=== PATIENT | male | born 1940 | race Asian ===

== ENCOUNTER → 2017-07-18 | Outpatient (CLI) | payer OTHER | END | disposition home or self-care (01) | LOC: RAD 09:23 | DX: J84.10 Pulmonary fibrosis, unspecified (principal); R05 Cough | CPT/HCPCS: 71046 ==

== ENCOUNTER 2018-12-04 08:20 | Outpatient (CLI) | payer OTHER ==
[~2018-12-04] VITALS: Ht 149.9 cm; Wt 55.3 kg
[~2018-12-04 08:20] MED LIST: AMLO5TAB4 PO; ASPI-612 PO; ATOR10TA60 PO; CALC0.25 PO; CALC667C6 PO; INSU100I11 SQ; INSU100V13 SQ; ISOS60TA2 PO; METO-239 PO; NITR0.4T22 SL; SENN8.6T99 PO
[2018-12-04 08:43] LABS: BASO # 0.1 x10^3/uL (0.0-0.2); BASO % 1 % (0-3); EOS # 0.2 x10^3/uL (0.0-0.7); EOS % 5 % (0-3); HEMATOCRIT 33.1 % (39.0-53.0); HEMOGLOBIN 10.6 g/dL (13.0-17.5); LYMPH # 1.3 x10^3/uL (1.0-4.8); LYMPH % 25 % (24-48); MEAN CORPUSCULAR HEMOGLOBIN 32 pg (25-35); MEAN CORPUSCULAR HGB CONC 32 g/dL (31-37); MEAN CORPUSCULAR VOLUME 100 fL (79-100); MONO # 1.7 x10^3/uL (0.0-1.1); MONO % 33 % (0-9); NEUT # 1.9 x10^3/uL (1.8-7.7); NEUT % 36 % (31-73); PLATELET COUNT 92 x10^3/uL (140-400); RED BLOOD COUNT 3.32 x10^6/uL (4.30-5.70); RED CELL DISTRIBUTION WIDTH 25.8 % (11.5-14.5); WHITE BLOOD COUNT 5.2 x10^3/uL (4.0-11.0)
[2018-12-04] MEDS ORDERED: MIDO5TAB PO (08:46)
[2018-12-04] MEDS ORDERED: CARV25TA PO (08:46)
[2018-12-04] MEDS ORDERED: ATOR40TA59 PO (08:46)
[2018-12-04] MEDS ORDERED: PANT40TA77 PO (08:46)
[2018-12-04] MEDS ORDERED: GABA-585 PO (08:46)
[2018-12-04 08:54] LABS: PROTHROMBIN TIME PATIENT 13.4 SEC (11.7-14.0)
[2018-12-04 08:55] LABS: CALCIUM 8.9 mg/dL (8.5-10.1); CREATININE 6.3 mg/dL (0.7-1.3); GFR 8.6
[2018-12-04] MEDS ORDERED: DEXTROSE 50% 25 GM / 50ML DISP.SYRIN. IV ONE ×2 (09:01→09:15)
[2018-12-04 09:35] LABS: % BASOS 1 % (0-3); % EOS 2 % (0-5); % LYMPHS 28 % (24-48); % MONOS 28 % (0-10); % SEGS 41 % (35-66); NUCLEATED RBC 1
[2018-12-04 09:36] LABS: PLT ESTIMATE DECREASED (ADEQUATE)
[2018-12-04 09:37] LABS: ANISOCYTOSIS MOD; POLYCHROMASIA OCCASIONAL; TARGET CELLS OCC
[2018-12-04 10:03] VITALS: BP 136/55
[2018-12-04] MEDS ORDERED: IODIXANOL 320 MG/ML 100 ML VIAL. ONE (10:03)
[2018-12-04] MEDS ORDERED: MIDAZOLAM HCL/PF 5 MG/5 ML VIAL. ONE (10:04)
[2018-12-04] MEDS ORDERED: fentaNYL PF VIAL 100 MCG/2 ML VIAL ONE (10:04)
[2018-12-04] MEDS ORDERED: LIDOCAINE WITH 8.4% SOD BICARB 3 ML DISP.SYRIN. ONE (10:04)
[2018-12-04] MEDS ORDERED: HEPARIN for IV BOLUS 10,000 UNIT/10 ML VIAL. ONE (10:04)
[2018-12-04] MEDS ORDERED: MIDAZOLAM HCL/PF 5 MG/5 ML VIAL. IV ONE (11:00)
[2018-12-04] MEDS ORDERED: IODIXANOL 320 MG/ML 100 ML VIAL. IART ONE (11:00)
[2018-12-04] MEDS ORDERED: fentaNYL PF VIAL 100 MCG/2 ML VIAL IV ONE (11:00)
[2018-12-04] MEDS ORDERED: LIDOCAINE WITH 8.4% SOD BICARB 3 ML DISP.SYRIN. IJ ONE (11:00)
[2018-12-04] MEDS ORDERED: HEPARIN for IV BOLUS 10,000 UNIT/10 ML VIAL. IV ONE (11:00)
[2018-12-04] MEDS ORDERED: CONTRAST GIVEN. MC PRN ×2 (11:15)
[2018-12-04 11:24] VITALS: BP 106/49
[2018-12-04 11:30] VITALS: BP 120/53
[2018-12-04 11:45] VITALS: BP 107/54
[2018-12-04 12:00] VITALS: BP 115/46
[2018-12-04 12:15] VITALS: BP 116/49
--- NOTE | 2018-12-04 12:45 | NUR ---
Discharge Note: VLADISLAV MARMOLEJO Discharge instructions and discharge home medications reviewed with Patient and a copy given. All questions have been answered and understanding verbalized. The following instructions and handouts were given: AV Fistula malfunction, moderate sedation- adult Discontinued lines and drains: Right hand IV removed with tip intact. No bleeding noted at site at this time. Patient discharged to home with family via private car in no apparent distress.
--- NOTE | 2018-12-04 16:31 | RAD ---
12/04/2018 1. Left upper extremity fistulogram 2. Balloon angioplasty of the cephalic vein in the cephalic arch Indication: Recent circulation noted at dialysis. Discussion: Consent: The procedure was explained in its entirety to the patient or the patients designated appliance service representative by a member of the treatment team, including a discussion of the risks, benefits and commonly accepted alternatives to the procedure, as well as the expected consequences of no therapy whatsoever. Discussion of the risks included, but was not limited to, those that are most frequent and those that are rare but possibly severe or life-threatening, as well as the possibility of unforeseen complications. Technique and Findings: Following informed consent, a timeout procedure was performed. The patient was prepped and draped in the usual sterile fashion. Ultrasound interrogation of the left upper extremity AV fistula, demonstrated the fistula to be grossly patent. No overt stenoses were identified by ultrasound. The fistula was accessed directed towards venous outflow using micropuncture technique and direct ultrasound guidance. Ultrasound images were saved the medical record. Fistulogram was were obtained. A 4 Wolof vascular sheath was placed. Arterial anastomosis is grossly patent. The outflow vein is grossly patent to the cephalic arch where there is moderate narrowing. More central veins are grossly patent. A guidewire was advanced through the area of stenosis. A 6 Wolof vascular sheath was placed. Balloon angioplasty was performed with a 7 mm balloon. Improved morphology and flow is noted through the cephalic vein following balloon dilatation. The guidewire and sheath were removed. A pursestring suture was used to facilitate hemostasis at the access site. Sterile dressings were applied. No immediate complications were identified. Total fluoroscopy time: 2.4 minutes Dose area product: 39 Gycm2 The procedure was performed under conscious sedation, including continuous cardiopulmonary monitoring via a dedicated sedation nurse. 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
== END 2018-12-04 12:45 | disposition home or self-care (01) ==
LOC: INTRAD 08:20
PROVIDERS: ATTEND Internal Medicine Nephrology
DX: T82.858A Stenosis of other vascular prosthetic devices, implants and grafts, initial encounter (principal); E11.22 Type 2 diabetes mellitus with diabetic chronic kidney disease; I12.0 Hypertensive chronic kidney disease with stage 5 chronic kidney disease or end stage renal disease; N18.6 End stage renal disease; Z79.84 Long term (current) use of oral hypoglycemic drugs; Y83.8 Other surgical procedures as the cause of abnormal reaction of the patient, or of later complication, without mention of misadventure at the time of the procedure; Y92.89 Other specified places as the place of occurrence of the external cause
CPT/HCPCS: 36415; 36902; 76937; 80048; 82962; 85025; 85610; 99152; 99153; C1758; C1769; C1892; C1894; J1644; J2250; J3010; J7042; Q9967; 85007